=== PATIENT | male | born 1965 | race Caucasian/White ===

== ENCOUNTER 2019-03-20 15:21 | Emergency (ER) | payer OTHER ==
[~2019-03-20] VITALS: Ht 170.2 cm; Wt 86.2 kg
[~2019-03-20 15:21] MED LIST: AUGMENTIN 500-1 EACH; CELEXA20 MG PO; DICLOFENAC SODI75 M1; DICLOFENAC SODIUM PO; FLEXERIL PO; FLONASE 0.05%50 MCG NS; LISINOPRIL40 MG PO; LOSARTAN-HCTZ1 EAC1; LOSARTAN-HCTZ1 EAC1 PO; MEDROL DOSPAK21 TAB PO; NAPROXEN375 MG PO; NIFEDICAL XL PO; NORCO 5-325 TA1 EACH PO; PERCOCET 5-3251 EACH PO; PRILOSEC 20 MG20 MG PO; TRAMADOL 50 MG50 MG PO; WELLBUTRIN SR150 M1 PO; ZIAC 5-6.25 MG1 EACH PO; ZPAK PO; ZYRTEC10 M2; ZYRTEC10 M2 PO
[2019-03-20] MEDS ORDERED: NEURONTIN300 MG PO (15:37)
[2019-03-20] MEDS ORDERED: AMITRIPTYLINE H25 M3 PO (15:37)
[2019-03-20] MEDS ORDERED: NIFEDIPINE ER60 M1 PO (15:38)
[2019-03-20] MEDS ORDERED: KEFLEX500 M2 PO (17:23)
[2019-03-20] MEDS ORDERED: HYDROCODON-ACE1 EAC7 PO (17:23)
[2019-03-20 17:43] VITALS: BP 139/93
== END 2019-03-20 17:45 | disposition home or self-care (01) ==
LOC: M.ERS 15:21
DX: S61.411A Laceration without foreign body of right hand, initial encounter (principal); I10 Essential (primary) hypertension; G62.9 Polyneuropathy, unspecified; Z88.2 Allergy status to sulfonamides; X58.XXXA Exposure to other specified factors, initial encounter; Y93.89 Activity, other specified; Y92.89 Other specified places as the place of occurrence of the external cause; Y99.8 Other external cause status

== ENCOUNTER 2019-09-13 17:46 | Emergency (ER) | payer OTHER ==
[~2019-09-13] VITALS: Ht 170.2 cm; Wt 85.3 kg
[~2019-09-13 17:46] MED LIST changes: +AMITRIPTYLINE H25 M3 PO; +HYDROCODON-ACE1 EAC7 PO; +KEFLEX500 M2 PO; +NEURONTIN300 MG PO; +NIFEDIPINE ER60 M1 PO
[2019-09-13 20:18] LABS: ABSOLUTE BASOPHILS 0.1 thou/uL (0.0-0.2); ABSOLUTE EOSINOPHILS 0.4 thou/uL (0.0-0.7); ABSOLUTE LYMPHOCYTES 2.8 thou/uL (0.8-5.3); ABSOLUTE NEUTROPHILS 5.1 thou/uL (1.6-8.1); BASOPHILS 1.3 %; EOSINOPHILS 3.8 %; HEMATOCRIT 36.5 % (42.0-52.0); HEMOGLOBIN 12.6 gm/dL (14.0-18.0); MCHC 34.5 g/dL (28.0-37.0); MONOCYTES 10.3 %; MPV 8.5 fl. (7.2-11.1); NUCLEATED RBCS 0 /100WBC; PLATELET COUNT* 415 thou/uL (150-400); POLYS 54.6 %; RBC 4.19 mil/uL (4.50-6.00); RDW-CV 13.5 % (10.5-14.5); WBC 9.3 thou/uL (4.0-11.0)
[2019-09-13 20:23] LABS: CALCIUM 8.2 mg/dL (8.5-10.1); CREATININE 0.9 mg/dL (0.6-1.3); POTASSIUM 3.5 mmol/L (3.5-5.1)
[2019-09-13] MEDS ORDERED: MEDROLDOSEPACK PO (20:34)
[2019-09-13] MEDS ORDERED: NABUMETONE 750750 M1 PO (20:34)
[2019-09-13 20:47] VITALS: BP 156/99
== END 2019-09-13 20:47 | disposition home or self-care (01) ==
LOC: M.ERS 17:46
PROVIDERS: Nurse Practitioner Family
DX: M25.422 Effusion, left elbow (principal); I10 Essential (primary) hypertension; Z88.2 Allergy status to sulfonamides

== ENCOUNTER 2020-03-09 19:31 | Emergency (ER) | payer OTHER ==
[~2020-03-09] VITALS: Ht 177.8 cm; Wt 86.2 kg
[~2020-03-09 19:31] MED LIST changes: +MEDROLDOSEPACK PO; +NABUMETONE 750750 M1 PO
[2020-03-09 20:30] LABS: INFLUENZA A ANTIGEN Negative (Negative); INFLUENZA B ANTIGEN Negative (Negative)
[2020-03-09 22:24] LABS: HEMATOCRIT 35.6 % (42.0-52.0); HEMOGLOBIN 11.8 gm/dL (14.0-18.0); MCH 29.2 pg (26.0-34.0); MCHC 33.2 g/dL (28.0-37.0); MCV 87.9 fL (80.0-100.0); MPV 7.9 fl. (7.2-11.1); RBC 4.05 mil/uL (4.50-6.00); RDW-CV 13.7 % (10.5-14.5); WBC 12.2 thou/uL (4.0-11.0)
[2020-03-09 22:36] LABS: CALCIUM 8.8 mg/dL (8.5-10.1); CREATININE 0.9 mg/dL (0.6-1.3); POTASSIUM 3.7 mmol/L (3.5-5.1)
[2020-03-09 22:40] LABS: ALBUMIN 2.9 g/dL (3.4-5.0); TOTAL BILIRUBIN 0.1 mg/dL (<0.1-1.0); TOTAL PROTEIN 6.5 g/dL (6.4-8.2)
[2020-03-09] MEDS ORDERED: CEFDINIR300 MG PO (22:48)
[2020-03-09] MEDS ORDERED: MEDROLDOSEPACK PO (22:48)
[2020-03-09 23:00] VITALS: BP 141/70
--- NOTE | 2020-03-10 13:50 | EKG ---
[place] [address] ELECTROCARDIOGRAM REPORT Name: MAXIMINO AVALOS Room: [facility]#: [id number] Admission: 03/09/20 Attend Phys: Discharge: 03/09/20 Date of : 63 Date of Service: 03/09/202199 Report #: [id number] THIS REPORT FOR: //name// [facility] ED Test Date: 2020-03-09 Test Time: 22:00:47 Pat Name: MAXIMINO AVALOS Department: Room: Gender: [employer]: [place] : 1965 Requested By: Sfoia You Order Number: [id number] MD: Sanjay Valverde Measurements Intervals [place] Rate: 81 P: 32 NC: 138 QRS: -21 QRSD: 108 T: 54 QT: 398 QTc: 462 Interpretive Statements Sinus rhythm Borderline left axis deviation Borderline low voltage, extremity leads Baseline wander in lead(s) V2 Compared to ECG 03/31/2016 18:50:44 no change Electronically Signed On 03-10-2020 13:50:36 ELECTRICAL PROSPECTING OPERATOR by Sanjay Valverde [email or web address] <ELECTRONICALLY SIGNED> By: Sanjay Valverde MD, [facility] 03/10/20 1350 99 99 Sanjay Valverde MD, [facility] /EPI
== END 2020-03-09 23:01 | disposition home or self-care (01) ==
LOC: M.ERS 19:31
PROVIDERS: Personal Emergency Response Attendant
DX: J18.9 Pneumonia, unspecified organism (principal); Z20.828 Contact with and (suspected) exposure to other viral communicable diseases; I10 Essential (primary) hypertension; Z88.2 Allergy status to sulfonamides

== ENCOUNTER 2020-09-03 16:25 | Emergency (ER) | payer OTHER ==
[~2020-09-03] VITALS: Ht 170.2 cm; Wt 82.6 kg
[~2020-09-03 16:25] MED LIST changes: +CEFDINIR300 MG PO
[2020-09-03] MEDS ORDERED: CEPHALEXIN500 MG PO (17:18)
[2020-09-03 17:33] VITALS: BP 137/64
== END 2020-09-03 17:34 | disposition home or self-care (01) ==
LOC: M.ERS 16:25
DX: S61.412A Laceration without foreign body of left hand, initial encounter (principal); I10 Essential (primary) hypertension; J44.9 Chronic obstructive pulmonary disease, unspecified; Z88.2 Allergy status to sulfonamides; Z79.899 Other long term (current) drug therapy; W27.8XXA Contact with other nonpowered hand tool, initial encounter; Y93.89 Activity, other specified; Y92.89 Other specified places as the place of occurrence of the external cause; Y99.9 Unspecified external cause status